=== PATIENT | female | born 1995 | race Asian ===

== ENCOUNTER 2022-01-30 21:23 | Emergency (ER) | payer SELFPAY ==
--- OUTSIDE RECORDS SUMMARY | 2022-01-30 21:28 | XMS REPORT | Continuity of Care Document ---
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 /min Universi ty of [facility] Body temperature 2021-06-18 14:52:00 36.78 Lorelei [facility] Respiratory rate 2021-06-18 14:52:00 14 /min [facility] Body height 2021-06-18 14:52:00 152.4 cm Universi ty of [facility] Body weight 2021-06-18 14:52:00 70.761 kg Universi ty of [facility] BMI 2021-06-18 14:52:00 30.47 kg/m2 Universi ty of [facility] Oxygen saturation in 2021-06-18 14:52:00 99 /min [facility] Arterial blood by [facility] Pulse oximetry [place] Procedures Procedure Date / Time Performed Performing Clinician Sourc e LIPASE 2021-09-11 13:50:00 Jenna Reese [facility] COMP. METABOLIC PANEL 2021-09-11 13:50:00 Jenna Reese [facility] ([id number]) [facility] CBC WITH DIFF 2021-09-11 13:50:00 Jenna Reese [facility] URINALYSIS 2021-09-11 13:39:00 Jenna Reese [facility] CONSENT/REFUSAL FOR 2021-09-11 12:35:16 Doctor Unassigned, No Un [facility] DIAGNOSIS AND Name Medical [facility] TREATMENT CT CHEST PULMONARY 2021-06-23 05:46:31 Mikki Lewis [facility] ANGIOGRAM Medical Branch POCT TEST 2021-06-23 05:08:00 Mikki Lewis [facility] [place] URINALYSIS 2021-06-23 05:07:00 Mikki Lewis [facility] XR CHEST 1 VW 2021-06-23 05:04:00 Mikki Lewis [facility] MAGNESIUM 2021-06-23 04:35:00 Mikki Lewis [facility] TROPONIN I 2021-06-23 04:35:00 Mikki Lewis [facility] COMP. METABOLIC PANEL 2021-06-23 04:35:00 Mikki Lewis [facility] ([id number]) Medical Branch CBC WITH DIFF 2021-06-23 04:35:00 Mikki Lewis [facility] D-DIMER 2021-06-23 04:35:00 Mikki Lewis [facility] CONSENT/REFUSAL FOR 2021-06-23 04:03:19 Doctor Unassigned, No Un [facility] [place] DIAGNOSIS AND Name Medical Branch TREATMENT URINALYSIS 2021-06-18 15:38:00 Jenna Reese [facility] Medical Branch POCT GLUCOSE 2021-06-18 15:11:00 Jenna Reese [facility] (AUTOMATED) Medical Branch CONSENT/REFUSAL FOR 2021-06-18 14:49:43 Doctor Unassigned, No Un [facility] DIAGNOSIS AND Name Medical Branch TREATMENT Plan of Care Planned Activity Planned Date Details Comments Source Future Scheduled Test 2021-06-17 00:00:00 IMM Influenza [facility] Seasonal Jun to November (>/= 19 yrs) [code = IMM Influenza Seasonal Jun to November (>/= 19 yrs)] Future Scheduled Test 2021-06-17 00:00:00 IMM Influenza [facility] Seasonal Jun to November (>/= 19 yrs) [code = IMM Influenza Seasonal Jun to November (>/= 19 yrs)] Future Scheduled Test 2014-10-20 00:00:00 Screening for [facility] malignant neoplasm of cervix (procedure) [code = 816395026] Future Scheduled Test 2014-10-20 00:00:00 Screening for [facility] malignant neoplasm of cervix (procedure) [code = 516080892] Future Scheduled Test 1998-10-20 00:00:00 COVID-19 Vaccine (1) [facility] [code = COVID-19 Vaccine (1)] Future Scheduled Test 1998-10-20 00:00:00 COVID-19 Vaccine (1) [facility] [code = COVID-19 Vaccine (1)] Encounters Start End Encounter Admission Attending Care Care Encounter Source Date/Time Date/Time Type Type Clinicians Facility Department ID 2021-09-11 2021-09-11 [facility] [id number] Univers 06:52:00 11:08:00 JENNA ityassine [facility] 2021-09-11 2021-09-11 [facility] [id number] Univers 06:52:00 11:08:00 Jenna JEAN BAPTISTE [id number] ity [facility] 4.2.7.2.686 [facility] [id number] [address] 2021-06-22 2021-06-23 Emergency [facility] [id number] Univers 23:15:00 01:45:00 Mikki Jean Baptiste [id number] i ty [facility] 4.2.7.2.686 [facility] [id number] [address] 2021-06-22 2021-06-22 Emergency X [facility] ERT [id number] Univers 23:03:00 23:03:00 ity [facility] 2021-06-18 2021-06-18 [facility] [id number] Univers 09:53:00 11:48:00 Jenna Jean Baptiste [id number] ity [facility] 4.2.7.2.686 [facility] [id number] [address] 2021-06-18 2021-06-18 Emergency X [facility] ERT [id number] Univers 09:49:00 09:49:00 ity [facility] 2021-03-05 2021-03-05 Emergency X [facility] ERT [id number] Univers 00:17:00 00:17:00 ity [facility] 2021-01-17 2021-01-17 Outpatient GCCOVIDV GCCOVIDV [id number] GCCOVID 00:00:00 00:00:00 V 2021-01-09 2021-01-09 Emergency X [facility] ERT [id number] Univers 18:34:00 18:34:00 ity [facility] 2020-11-24 2020-11-24 Emergency [facility]RT [id number] Univers 18:00:00 18:00:00 ELISEO [facility] 2020-09-10 2020-09-11 Emergency Brannon Corrales [facility] [id number] 23:20:00 02:29:00 Jacqueline Jean Baptiste [id number] [place] 4.2.7.2.686 [place] [id number] 2020-09-10 2020-09-10 Emergency X Brannon CORRALES [facility] ERT [id number] Univers 23:20:00 [facility]-09[facility]10 2020-09-10 Orders Doctor BRAEDEN [id number] 00:00:00 00:00:00 Only Unassigned, KELSEA [id number] [place] [facility] 4.2.7.2.686 [id number] [id number] 2020-08-13 2020-08-13 [facility] [id number] 10:44:00 12:11:00 Rafael Jean Baptiste [id number] [place] 4.2.7.2.686 [place] [id number] 084 2020-08-13 2020-08-13 Emergency [facility] [id number] Univers 10:44:00 10:44:00 RAFAEL [facility] 2020-08-13 2020-08-13 Orders Doctor BRAEDEN [id number] 00:00:00 00:00:00 Only Unassigned, KELSEA [id number] [place] [facility] 4.2.7.2.686 [id number] [id number] 2020-06-07 2020-06-08 Emergency Facundo, [facility] [id number] 22:31:00 01:04:00 Rafael Jean Baptiste [id number] [place] 4.2.7.2.686 [place] [id number] 084 2020-06-07 2020-06-07 Emergency X [facility] ERT [id number] Univers 22:28:00 22:28:00 ityassine [facility] 2020-04-21 2020-04-21 [facility] [id number] 01:35:00 04:13:00 Jah Jean Baptiste [id number] [place] 4.2.7.2.686 [place] [id number] [id number] 2020-04-21 2020-04-21 [facility] ERT [id number] Univers 01:35:00 01:35:00 JAH morris [facility] 2020-04-15 2020-04-15 Emergency [facility] [id number] 15:35:55 18:20:00 Nancy Jean Baptiste [id number] [place] 4.2.7.2.686 [place] [id number] 2020-04-15 2020-04-15 Emergency X [facility] ERT [id number] Univers 15:35:55 15:35:55 NANCY yassine [facility] 2020-04-14 2020-04-14 Nurse Brady DERAS 1.2.840.114 [id number] 00:00:00 00:00:00 Triage KELSEA Mendoza [id number] [facility] 4.2.7.2.686 [id number] 2020-03-09 2020-03-09 Emergency , [facility] 1.2.767.816 [id number] 19:50:00 20:14:00 Nicolás Jean Baptiste [id number] [place] 4.2.7.2.686 [place] [id number] 084 2020-03-09 2020-03-09 Emergency [facility] [id number] Univers 19:50:00 19:50:00 NICOLÁS morris [facility] 2020-03-09 2020-03-09 Orders Doctor BRAEDEN 1.2.840.114 [id number] 00:00:00 00:00:00 Only UnassignedKELSEA 350.1.13.10 [place] [address] [id number] [id number] 2019-11-11 2019-11-12 Outpatient E VIOLA, [facility] [id number] 03:51:00 16:34:[address] [facility] 2019-11-07 2019-11-07 Emergency E ROMAN SE SE [id number] 01:14:00 06:45:00 [facility] 2019-11-06 2019-11-07 [facility] [id number] 21:44:32 00:32:00 Rafael Jean Baptiste [id number] [place] [address].2.7.2.686 [place] [id number] 2019-11-06 2019-11-07 [facility] [id number] Univers 21:44:32 00:32:00 RAFAEL [facility] 2019-06-07 2019-06-07 Orders Doctor BRAEDEN 1.2.840.114 [id number] 00:00:00 00:00:00 Only UnassignedKELSEA [id number]686 [id number] [id number] Results Test Description Test Time Test Comments Results Result Comments Source HEMOGLOBIN A1c 2021-12-03 07:43:51 Test Item Value Reference Range Interpretation Comme nts HEMOGLOBIN A1c (test code = 11.7 % 4.2-5.6 H [employer] 38720) GUIDELINES FOR HGB A1C: PREDIABETES/INC REASED RISK . . . . . . . 5.7-6.4% DIAGNOSIS OF DIABETES . . . . . . . . . >=6.5% WITH CONF IRMATION OR APPROPRIATE SYMPTOMS N OTE: ASSAY MAY BE AFFECTED BY HEM OGLOBINOPATHIES (SICKLE CELL ANEMIA, S-C DISEASE, OTHERS) OR ARTIFICIALLY LO WERED BY DECREASED RED CELL SURVIV AL (HEMOLYTIC ANEMIAS, BLOOD LOSS, ETC.). CONSIDER ALTERNATE TESTI NG OR LABORATORY CONSULTATION. UNLESS OTHERWISE INDICATED, ALL TESTING PERFORMED [facility] [employer] [address] [place] [address]: SARAHI HENDERSON M.D. [place] NUMBER [id number] [place]. [id number] TSH, THIRD [id number] 04:32:04 Test Item Value Reference Range Interpretation Comments TSH, THIRD GENERATION (test code 4.590 UIU/ML 0.400-4.100 H = 2821) ALBUMIN/CREATININE RATIO, URINE, [id number] 04:19:03 Test Item Value Reference Range Interpretation Comments CREATININE, URINE, 54.4 MG/DL NOT ESTAB RANDOM (test code = 2072) ALBUMIN, URINE, 0.7 MG/DL NOT ESTAB RANDOM (test code = 35475) CALC ALBUMIN/CREAT, 13 MG/G <30 Note: RND (test code = Albumin/Cre atinine 58916) ratio reference interval reflec ts ADA and NKF guidelines. COMPREHENSIVE METABOLIC [id number] 03:37:31 Test Item Value Reference Range Interpretation Comments GLUCOSE (test code = 172 MG/DL 70-99 H 2216) BUN (test code = 12 MG/DL 6-20 2207) CREATININE (test 0.54 MG/DL 0.60-1.30 L code = 2214) eGFR (2020 CKD-EPI) 129 >60 (test code = 70206) ML/MIN/1.73 CALC BUN/CREAT (test 22 RATIO 6-28 code = 2235) SODIUM (test code = 138 MEQ/L 339-916 2164) POTASSIUM (test code 4.9 MEQ/L 3.5-5.4 = 2227) CHLORIDE (test code 102 MEQ/L 95-107 = 2214) CARBON DIOXIDE (test 27 MEQ/L 19-31 code = 2206) CALCIUM (test code = 9.6 MG/DL 8.5-10.5 2208) PROTEIN, TOTAL (test 6.9 G/DL 6.1-8.3 code = 222) ALBUMIN (test code = 4.1 G/DL 3.5-5.2 2200) CALC GLOBULIN (test 2.8 G/DL 1.9-3.7 code = 2240) CALC A/G RATIO (test 1.5 RATIO 1.0-2.6 code = 2234) BILIRUBIN, TOTAL 0.2 MG/DL See_Comment [Automated message] (test code = 2207) The syste m which generated this result transmit isabella reference range : <=1.2. The refe rence range was not u sed to interpret th is result as normal/abnormal . ALKALINE PHOSPHATASE 87 U/L 40-112 (test code = 2203) AST (test code = 21 U/L 9-40 2217) ALT (test code = 27 U/L 5-40 2218) LIPID [id number] 03:37:31 Test Item Value Reference Range Interpretation Comments CHOLESTEROL (test 194 MG/DL <200 code = 2210) TRIGLYCERIDES (test 170 MG/DL <150 H code = 2232) HDL CHOLESTEROL (test 68 MG/DL >39 code = 2220) CALC LDL CHOL (test 99 MG/DL <100 NOTE: C ALCULATED LDL code = 2237) IS BASED ON BERLIN-THORNTON METHOD WHICHINCLUDES ADJUSTABLE TRIGLYCERIDE:VL DL CHOLESTEROL RAT IO.THIS FACTOR VARIES B Y MEASURED TRIGLY CERIDE AND NON-HDLCHOL ESTEROL CONCENTRATIONS WITH INCREASED CALCU LATED LDL SEENIN HIGH ER TRIGLYCERIDE OR LOWER NON-HDL SPECIME NS. FOR MOREINFORMATION , SEE CLIENT ANNOUNCE MENT AT [email or web address] RISK RATIO LDL/HDL 1.46 RATIO <3.22 (test code = 223) SARS-CoV-2 (COVID-19), RT-PCR/[id number] 07:15:02 Test Item Value Reference Interpretation Comments Range SARS-CoV-2 POSITIVE SEE NOTE A SARS-CoV-2 RNA INTERPRETATION DETECTEDPosit augusta results (test code = 17132) are cy cative of the presence of ISAAC S-CoV-2 RNA;clinical co rrelation with patient hi story and other diagnosticinfor mation is necessary to de termine patient infecti on status.Positive results do not rule out bacterial infection or co-infectionwit h other viruses. Positi ve and negative predic tive values oftestin g are highly dependen t on prevalence. SOURCE (test code = NOT SPECIFIED Note: [place] [address]) Aggie Shirlene [place] l-Time RT-PCR. The exp ected result or refer ence range is NEGATIVE (No t Detected). For more information reg arding COVID-19 testin g to include clinicalinforma tion, methodology det ail, intended use, F DA authorization andrecommended fact sheets for ed ents or healthcare prov iders, see NewTest Announc ement: SARS-CoV-2 (COV ID-19) by NAAT at URL bel ow (note,fact shee ts are provided by met hod given in report:https:// www.[employer]/clinician s/client-c ommunications/ Alternatively, see downloadable PD F fact sheet at:https://www. [employer] m/TCVCH-36-QB-P CR UNLESS OTHERWIS E INDICATED, ALL TESTING PERFORMED [facility] PATHOLOGY [facility] [employer] [facility]. [address] [place] [address] 4 LABORATORY DIRE CTOR: SARAHI VILLA M.D. CLIA NUMBER [id number] [place] [id number] SARS-CoV-2 (COVID-19), RT-PCR/[id number] 14:34:59 Test Item Value Reference Interpretation Comments Range SARS-CoV-2 NEGATIVE SEE NOTE SARS-CoV-2 RNA NOT INTERPRETATION DETECTEDNegat augusta (test code = 76265) results do not preclude SARS-CoV-2 infe ction and should notb e used as the sole bas is for patient managem ent decisions. Negativeresults must be combined with c linical observations, p atient history,and epidemiological information. Op timum specimen types and timingfor peak viral levels during infections caus ed by SARS-CoV-2 have notbeen determined. Col lection of multiple spe cimens or types ofspec imens may be necessar y to detect virus. I mproper specimencollect ion and handling, seque nce variability und er primers/probes, or organism presen t below the limit of de tection may lead to falsenegative r esults. Positive and ne gative predictive valu es oftesting are h ighly dependent on prevalence. Fal se negative testre sults are more likely when prevalence is h igh. SOURCE (test code = NOT SPECIFIED Note: [place] [address]) Aggie Shirlene [place] l-Time RT-PCR. The exp ected result or ref erence range is NEGATI VE (Not Detected). For more information reg beryl COVID-19 testin g to include clinicalinforma tion, methodology det ail, intended use, F DA authorization andrecommended fact sheets for ed ents or healthcare prov iders, see [facility] HospitalTest Announcement: SARS-CoV-2 (COV ID-19) by NAAT at URL below (note,fact shee ts are provided by met hod given in report:https:// www.[employer]com/clinici ans/clie nt-communicatio ns/ Alternatively, see downloadable PD F fact sheet at:https://www. [employer]/COVID-19-RT -PCR UNLESS OTHERW ISE INDICATED, ALL TESTING PERFORMED [facility] PATHOLOGY [facility], [facility]. [address] [place] [address] 4 LABORATORY DI EWA: Dony PEREIRA [id number] CAP ACCREDITATION N O. [id number] COMP. METABOLIC PANEL (93662)2021-09-11 14:15:24 Test Item Value Reference Range Interpretation Comments NA (test code = 136 mmol/L 135-145 1406799396) K (test code = 3.8 mmol/L 3.5-5.0 4922327575) CL (test code = 100 mmol/L 98-108 1737546204) CO2 TOTAL (test code = 27 mmol/L 23-31 2560753687) AGAP (test code = 2-16 4081918574) BUN (test code = 10 mg/dL 7-23 3354835471) GLUCOSE (test code = 84 mg/dL 70-110 0163063272) CREATININE (test code = 0.45 mg/dL 0.50-1.04 L 7415994977) TOTAL BILI (test code = 0.6 mg/dL 0.1-1.2 1443383060) CALCIUM (test code = 9.1 mg/dL 8.6-10.6 5504687336) T PROTEIN (test code = 8.0 g/dL 6.3-8.2 0104785456) ALBUMIN (test code = 4.8 g/dL 3.5-5.0 4782944378) ALK PHOS (test code = 85 U/L 34-122 2370952216) ALTv (test code = 23 U/L 5-35 1742-6) AST(SGOT) (test code = 26 U/L 13-40 7671022300) eGFR (test code = mL/min/1.73m2 1537414381) JONNIE (test code = JONNIE) Association of Glomerular Filtration Rate (GFR) and Staging of Kidney Disease* + --+ --+ ------+| GFR (mL/min/1.73 m2) ?| With Kidney Damage ?| ?Without Kidney Damage+ --------+ --------+ +| ?>90 ?| ?Stage one ?| ? Normal ?+ ---+ ---+ -------+| ?60-89 ?| ?Stage two ?| ? Decreased GFR ? + --+ --+ ------+| ?30-59 ?| ?Stage three ?| ? Stage three ? + --+ --+ ------+| ?15-29 ?| ?Stage four ? | ? Stage four ?+ ---+ ---+ -------+| ?<15 (or dialysis) ? ?| ?Stage five ? | ? Stage five ?+ ---+ ---+ -------+ *Each stage assumes the associated GFR level has been in effect for at least three months. ?Stages 1 to 5, with or without kidney disease, indicate chronic kidney disease. Notes: Determination of stages one and two (with eGFR >59mL/min/1.73 m2) requires estimation of kidney damage for at least three months as defined by structural or functional abnormalities of the kidney, manifested by either:Pathological abnormalities or Markers of kidney damage (including abnormalities in the composition of the blood or urine or abnormalities in imaging tests). Lab Interpretation Abnormal (test code = 08182-5) [facility] 14:15[facility]24 Test Item Value Reference Range Interpretation Comments LIPASE (test code = 3816074748) 62 U/L 0-220 Lab Interpretation (test code = Normal 54514-9) [facility] HospitalCB WITH [id number] 14:08:42 Test Item Value Reference Range Interpretation Comments WBC (test code = See_Comment [Automated 6690-2) message] The sy stem which generated this result transmitted reference range : 4.30 - 11.10 10*3/?L. The reference range was not used to interpret this result as normal/abnormal . RBC (test code = See_Comment [Automated 789-8) message] The sy stem which generated this result transmitted reference range : 3.93 - 5.25 10*6/?L. The reference range was not used to interpret this result as normal/abnormal . HGB (test code = 13.9 g/dL 11.6-15.0 718-7) HCT (test code = 41.0 % 35.7-45.2 4544-3) MCV (test code = 83.2 fL 80.6-95.5 787-2) MCH (test code = 28.2 pg 25.9-32.8 785-6) MCHC (test code = 33.9 g/dL 31.6-35.1 786-4) RDW-SD (test code = 36.4 fL 39.0-49.9 L 17303-3) RDW-CV (test code = 12.0 % 12.0-15.5 788-0) PLT (test code = See_Comment [Automated 777-3) message] The sy stem which generated this result transmitted reference range : 166 - 358 10*3/ ?L. The reference r raheel was not used to interpret this result as normal/abnormal . MPV (test code = 9.6 fL 9.5-12.9 46007-0) NRBC/100 WBC (test See_Comment [Automat ed code = 5636556889) message] The system which generated this result transmitted reference range : 0.0 - 10.0 /100 WBCs. The refer ence range was not u sed to interpret th is result as normal/abnormal . NRBC x10^3 (test code <0.01 See_Comment [Auto mated = 2952049307) message] The s ystem which generated this result transmitted reference range : 10*3/?L. The reference range was not used to interpret this result as normal/abnormal . GRAN MAT (NEUT) % 56.6 % (test code = 770-8) IMM GRAN % (test code 0.30 % = 4623641336) LYMPH % (test code = 34.4 % 736-9) MONO % (test code = 6.8 % 5905-5) EOS % (test code = 1.4 % 713-8) BASO % (test code = 0.5 % 706-2) GRAN MAT x10^3(ANC) 3.56 10*3/uL 1.88-7.09 (test code = 3003140795) IMM GRAN x10^3 (test <0.03 0.00-0.06 code = 5354030290) LYMPH x10^3 (test code 2.17 10*3/uL 1.32-3.29 = 731-0) MONO x10^3 (test code 0.43 10*3/uL 0.33-0.92 = 742-7) EOS x10^3 (test code = 0.09 10*3/uL 0.03-0.39 711-2) BASO x10^3 (test code 0.03 10*3/uL 0.01-0.07 = 704-7) Lab Interpretation Abnormal (test code = 17412-7) [facility] [id number] 05:24:21 Test Item Value Reference Interpretation Comments Range TROPONIN I (test 0.029 ng/mL See_Comment [Automated code = 6509506911) message] The system which generated this result transmitted reference range : <=0.034. The reference range was not used to interpret this result as normal/abnormal . JONNIE (test code = Reference (Normal) JONNIE) Range (defined by the 99th percentile reference limit): <= 0.034 ng/mL Note: Cardiac troponin begins to rise 3-4 hours after the onset of ischemia. Repeat in 4-6 hours if the sample was drawn within 3-4 hours of the onset of the symptom and found normal. Diagnosis of myocardial injury is made with acute changes in cTn concentrations with at least one serial sample above the 99th percentile upper reference limit (URL), taken together with the patient's clinical presentation. Biotin has been reported to cause a negative bias, interpret results relative to patient's use of biotin. Lab Interpretation Normal (test code = 34377-1) [facility]2021[facility]-07 05:12:57 Test Item Value Reference Range Interpretation Comments MAGNESIUM (test code = 5208827455) 1.9 mg/dL 1.7-2.4 Lab Interpretation (test code = Normal 07819-5) [facility] HospitalCOMP. METABOLIC PANEL (97781)2021-06-23 05:12:42 Test Item Value Reference Range Interpretation Comments NA (test code = 133 mmol/L 135-145 L [id number]) K (test code = 4.4 mmol/L 3.5-5.0 7909621707) CL (test code = 100 mmol/L 98-108 4964232602) CO2 TOTAL (test code = 23 mmol/L 23-31 5999571279) AGAP (test code = 2-16 4432515478) BUN (test code = 7 mg/dL 7-23 5684580247) GLUCOSE (test code = 328 mg/dL 70-110 H 7480415681) CREATININE (test code = 0.39 mg/dL 0.50-1.04 L 9887832590) TOTAL BILI (test code = 1.0 mg/dL 0.1-1.0 5995491144) CALCIUM (test code = 9.6 mg/dL 8.6-10.6 8513623409) T PROTEIN (test code = 7.7 g/dL 6.3-8.2 9800726644) ALBUMIN (test code = 4.3 g/dL 3.5-5.0 1374958213) ALK PHOS (test code = 105 U/L 34-122 3057346266) ALTv (test code = 37 U/L 5-35 H 1742-6) AST(SGOT) (test code = 43 U/L 13-40 H 5346681450) eGFR (test code = mL/min/1.73m2 6063051461) JONNIE (test code = JONNIE) Association of Glomerular Filtration Rate (GFR) and Staging of Kidney Disease* + --+ --+ ------+| GFR (mL/min/1.73 m2) ?| With Kidney Damage ?| ?Without Kidney Damage+ --------+ --------+ +| ?>90 ?| ?Stage one ?| ? Normal ?+ ---+ ---+ -------+| ?60-89 ?| ?Stage two ?| ? Decreased GFR ? + --+ --+ ------+| ?30-59 ?| ?Stage three ?| ? Stage three ? + --+ --+ ------+| ?15-29 ?| ?Stage four ? | ? Stage four ?+ ---+ ---+ -------+| ?<15 (or dialysis) ? ?| ?Stage five ? | ? Stage five ?+ ---+ ---+ -------+ *Each stage assumes the associated GFR level has been in effect for at least three months. ?Stages 1 to 5, with or without kidney disease, indicate chronic kidney disease. Notes: Determination of stages one and two (with eGFR >59mL/min/1.73 m2) requires estimation of kidney damage for at least three months as defined by structural or functional abnormalities of the kidney, manifested by either:Pathological abnormalities or Markers of kidney damage (including abnormalities in the composition of the blood or urine or abnormalities in imaging tests). Lab Interpretation Abnormal (test code = 89167-3) [id number]00 Test Item Value Reference Range Interpretation Comments POCT PREG (test code = 1605) negative On board controls acceptable with present C Line (test code = 3574) POCT PREG LOT # (test code = 3575) [id number] POCT PREG TEST DATE (test 2022-09-16 code = 3576) Lab Interpretation (test code = Normal 19785-4) [id number] 05:03:48 Test Item Value Reference Interpretation Comments Range D-DIMER (test code = See_Comment H [Autom ated 4119287219) message] The system which generated this result transmitted reference range : <0.41 ?g/mL (FEU). The reference range was not used to interpret this result as normal/abnormal . JONNIE (test code = This test may be JONNIE) used in conjunction with a clinical pretest probability (PTP) assessment model to exclude venous thromboembolism (VTE) in patients suspected of deep venous thrombosis (DVT) and pulmonary embolism (PE) A D-Dimer value less than 0.50 ?g/ml (FEU) has a negative predicative value of 96 to 100% (95% CI)and 97 to 100% (95% CI) as an aid in the diagnosis of deep vein thrombosis (DVT) and pulmonary embolism when there is low or moderate pretest probability of PE or DVT. D-Dimer values are expressed in initial fibrinogen equivalent units (FEU)" The assay results should be used with other information, including the clinical context, in forming a diagnosis. Lab Interpretation Abnormal (test code = 32808-4) [facility] WITH [id number] 04:54:52 Test Item Value Reference Range Interpretation Comments WBC (test code = See_Comment [Automated 2390-2) message] The sy stem which generated this result transmitted reference range : 4.30 - 11.10 10*3/?L. The reference range was not used to interpret this result as normal/abnormal . RBC (test code = See_Comment [Automated 789-8) message] The sy stem which generated this result transmitted reference range : 3.93 - 5.25 10*6/?L. The reference range was not used to interpret this result as normal/abnormal . HGB (test code = 14.4 g/dL 11.6-15.0 718-7) HCT (test code = 41.3 % 35.7-45.2 4544-3) MCV (test code = 81.9 fL 80.6-95.5 787-2) MCH (test code = 28.6 pg 25.9-32.8 785-6) MCHC (test code = 34.9 g/dL 31.6-35.1 786-4) RDW-SD (test code = 36.0 fL 39.0-49.9 L 54836-0) RDW-CV (test code = 12.2 % 12.0-15.5 788-0) PLT (test code = See_Comment [Automated 777-3) message] The sy stem which generated this result transmitted reference range : 166 - 358 10*3/ ?L. The reference r raheel was not used to interpret this result as normal/abnormal . MPV (test code = 10.6 fL 9.5-12.9 31461-6) NRBC/100 WBC (test See_Comment [Automat ed code = 2503936208) message] The system which generated this result transmitted reference range : 0.0 - 10.0 /100 WBCs. The refer ence range was not u sed to interpret th is result as normal/abnormal . NRBC x10^3 (test code <0.01 See_Comment [Auto mated = 3532878404) message] The s ystem which generated this result transmitted reference range : 10*3/?L. The reference range was not used to interpret this result as normal/abnormal . GRAN MAT (NEUT) % 58.7 % (test code = 770-8) IMM GRAN % (test code 0.30 % = 6058862136) LYMPH % (test code = 34.8 % 736-9) MONO % (test code = 5.3 % 5905-5) EOS % (test code = 0.6 % 713-8) BASO % (test code = 0.3 % 706-2) GRAN MAT x10^3(ANC) 5.59 10*3/uL 1.88-7.09 (test code = 4555070602) IMM GRAN x10^3 (test 0.03 10*3/uL 0.00-0.06 code = 4189890606) LYMPH x10^3 (test code 3.31 10*3/uL 1.32-3.29 H = 731-0) MONO x10^3 (test code 0.50 10*3/uL 0.33-0.92 = 742-7) EOS x10^3 (test code = 0.06 10*3/uL 0.03-0.39 711-2) BASO x10^3 (test code 0.03 10*3/uL 0.01-0.07 = 704-7) Lab Interpretation Abnormal (test code = 81603-0) [facility]2021-06-18 15:16:22 Test Item Value Reference Range Interpretation Comments POCT GLU (test code = 376 mg/dL 70-110 H Notifi ed Provider [id number]) Lab Interpretation (test Abnormal code = 67197-2) [facility] [id number] 17:46:00 Test Item Value Reference Range Interpretation Comments SODIUM (test code = NA) 136 mEq/L 134-147 N POTASSIUM (test code = 3.9 mEq/L 3.4-5.0 N K) CHLORIDE (test code = 103 mEq/L 100-108 N CL) CARBON DIOXIDE (test 28 mEq/L 21-33 N code = CO2) ANION GAP (test code = 9 0-20 N GAP) GLUCOSE (test code = 407 mg/dL 70-110 H GLU) BLOOD UREA NITROGEN 8 mg/dL 7-18 N (test code = BUN) GLOMERULAR FILTRATION 87.4 110-120 L Units of measure = RATE (test code = GFR) ml/mi n/1.73 m2 CREATININE (test code = 0.8 mg/dL 0.6-1.3 N CREAT) TOTAL PROTEIN (test 7.8 g/dL 6.4-8.2 N code = PROT) ALBUMIN (test code = 3.80 g/dL 3.4-5.0 N ALB) CALCIUM (test code = 9.2 mg/dL 8.0-10.5 N CA) BILIRUBIN TOTAL (test 0.4 MG/DL <1.5 N code = BILT) SGOT/AST (test code = 94 IUnit/L 15-37 H AST) SGPT/ALT (test code = 214 IUnit/L 15-65 H ALT) ALKALINE PHOSPHATASE 120 IUnit/L 20-125 N TOTAL (test code = ALKP) FAX:[phone]:[phone] METABOLIC [id number] 17:40:00 Test Item Value Reference Range Interpretation Comments SODIUM (test code = NA) 136 mEq/L 134-147 N POTASSIUM (test code = K) 3.9 mEq/L 3.4-5.0 N CHLORIDE (test code = CL) 103 mEq/L 100-108 N CARBON DIOXIDE (test code = CO2) 28 mEq/L 21-33 N ANION GAP (test code = GAP) 9 0-20 N GLUCOSE (test code = GLU) 407 mg/dL 70-110 H BLOOD UREA NITROGEN (test code = 8 mg/dL 7-18 N BUN) GLOMERULAR FILTRATION RATE (test 110-120 code = GFR) CREATININE (test code = CREAT) mg/dL 0.6-1.3 TOTAL PROTEIN (test code = PROT) g/dL 6.4-8.2 ALBUMIN (test code = ALB) g/dL 3.4-5.0 CALCIUM (test code = CA) 9.2 mg/dL 8.0-10.5 N BILIRUBIN TOTAL (test code = BILT) MG/DL <1.5 SGOT/AST (test code = AST) IUnit/L 15-37 SGPT/ALT (test code = ALT) IUnit/L 15-65 ALKALINE PHOSPHATASE TOTAL (test IUnit/L 20-125 code = ALKP) FAX:[phone]:[phone], [id number] 17:45:00 Test Item Value Reference Range Interpretation Comments RPR (test code = RPR) Non-Reactive Non-Reactive N Thyroid Stimulating Hormone (TSH)2017-11-23 10:02:00 Test Item Value Reference Range Interpretation Comments TSH (test code = TSH) 3.89 mIU/mL 0.270-4.200 N BHCG, Serum, [id number] 10:02:00 Test Item Value Reference Range Interpretation Comments B hCG, Quant (test <1 mIU/mL Weeks of Gestation code = BHCGQT) Ranges (mIU/m L)3 weeks 5. 40 - 72.04 weeks 10.2 - 7085 w eeks 217 - 28827 weeks 152 - 601276 weeks 4059 - 153 7678 weeks 76577 - 7065931 weeks 591 09 - 32263604 weeks 44400 - 1704 0912 weeks 73204 - 72158756 week s 91373 - 93 89544 weeks 35297 - 6610890 weeks 8904 - 5533 217 weeks 82 40 - 4223607 weeks 9649 - 12389 Lipid [id number] 09:57:00 Test Item Value Reference Range Interpretation Comments Cholesterol (test 195 mg/dL 0-200 N code = CHOL) Triglycerides (test 382 mg/dL 9-200 H code = TRIG) HDL (test code = 49 mg/dL 50-60 L HDL) Chol/HDL (test code 4.0 Ratio 0.0-4.4 N = CHOLPHDL) LDL, Calculated 70 0-130 N (NOTE)RISK O F HEART (test code = LDLC) DISEASEPu blished by [place] Heart AssociationAnal yte Optim al Boderline Increased RiskC HOL <200 200-239 >240TRI G <150 150-199 >200HDL Male: >60 <40HDL Female: >60 <50 LDL < 100 130-15 9 >160 LDL NEAR OPTIMAL IS 100- 129 VLDL (test code = 76 mg/dL 5-40 H VLDL) LDL/HDL (test code = 1 LDLPHDL) Valproic Acid (Depakote),[id number] 16:26:00 Test Item Value Reference Range Interpretation Comments Valproic Acid (test code = VALP) 67.0 ug/mL 50.0-100.0 N Comprehensive Metabolic [id number] 16:26:00 Test Item Value Reference Range Interpretation Comments Sodium (test code = 138 mmol/L 135-145 N NA) Potassium (test 4.4 mmol/L 3.5-5.1 N code = K) Chloride (test code 99 mmol/L 98-105 N = CL) Carbon Dioxide 29 mmol/L 22-29 N (test code = CO2) Glucose (test code 157 mg/dL 70-115 H = GLU) Blood Urea Nitrogen 12 mg/dL 6-20 N (test code = BUN) Creatinine (test 0.7 mg/dL 0.5-0.9 N code = CREAT) Calcium (test code 9.3 mg/dL 8.3-10.5 N = CA) Prot Total (test 7.7 g/dL 6.4-8.3 N code = TP) Albumin (test code 4.4 g/dL 3.5-5.2 N = ALB) A/G Ratio (test 1.3 Ratio code = AGRATIO) Globulin (test code 3.3 2.9-3.1 H = GLOB) Bili Total (test 0.3 mg/dL 0.1-0.9 N code = TBIL) Alk Phos (test code 84 U/L 35-104 N = APHOS) AST (test code = 25 U/L 1-32 N AST) ALT (test code = 22 U/L 1-33 N ALT) BUN/Creatinine 17.1 Ratio (test code = BCRATIO) Anion Gap (test 10 mmol/L 7-16 N code = AGAP) Estimated GFR (test >60 eGFR (es timated code = GFR) mL/min/1.73m2 Glomerular Kervin tration Rate) is an est imated value,calculate d from the patient's s verena creatinine usin g the MDRD equation.I t is NOT the patient 's actual GFR. The eGFR provides a more clinicallyusefu l measure of kidn ey disease than se rum creatinine alone.This calculation vish es sex and race into account, if the informationis provided. If th e race is not provided , and the patient isAfrican-Ameri can, multiply by 1.2 12. If sex is not prov ided, and thepatient is female, multipl y by 0.742. Results for patients <18 ye ars ofage have not been validated by th e MDRD study and jacobul d be interpretedwith caution.eGFR Re sult Interpretation: eGFR > or = 60 is in t he Normal RangeeGF R < 60 may mean kidney diseaseeGFR < 1 5 may mean kidney failureRange s recommended by the National Kidney Foundation,http ://nkd ep.nih.gov Urinalysis [id number] 16:11:00 Test Item Value Reference Range Interpretation Comments Color (test code = COLOR) Yellow Yellow,Straw,Pl N yellow Clarity (test code = Clear Clear N CLAR) Specific [place] (test 1.020 1.001-1.035 N code = SPGR) pH (test code = PH) 5.0 5.0-9.0 N Ketone (test code = KET) Negative mg/dL Negative N Glucose (test code = Negative mg/dL Negative N GLUCUR) Protein (test code = 25 mg/dL Negative A PROT) Bilirubin (test code = Negative mg/dL Negative N BILI) Occult Blood (test code = Negative Negative N UDOB) Urobilinogen (test code = 0.2 mg/dL 0.2-1.0 N UROB) Nitrite (test code = NIT) Negative Negative N Leuk Esterase (test code Small Negative A = LEUK) Micros Exam (test code = Indicated MEXAM) Epithelial Cells (test 50+ /LPF 0-30 A code = EPI) WBC, Urine (test code = 2-5 /HPF 0-5 A UWBC) RBC, Urine (test code = None Seen /HPF 0-5 A URBC) Bacteria (test code = Few /HPF BACT) BHCG, Urine, [id number] 16:10:00 Test Item Value Reference Range Interpretation Comments Preg Qual [Ur] (test code = HUHCG) Negative Negative N [id number] 16:07:00 Test Item Value Reference Range Interpretation Comments Amphetamine (test Negative Negative N For diagno stic code = AMPH) purposes only, positive result s should always b e assessedin conjunctionwith the patient's medic al history,clinica l examination and otherfindings.T o fulfill legal requirements, a more specific altern ate chemical method must be used inorder to obtain a Confirmed lise lytical result. GC/MS i s the preferred confi rmatory method. Barbiturates (test Negative Negative N code = ALLAN) Benzodiazepine (test Negative Negative N code = VISHAL) Cocaine (test code = Negative Negative N COCA) Methadone (test code Negative Negative N = MTHD) Opiates (test code = Negative Negative N OPIA) PCP (test code = PCP) Negative Negative N Propoxyphene (test Negative Negative N code = PROPOX) THC (test code = THC) Negative Negative N Alcohol, Urine (test <0.01 g/dL 0.00-0.01 N code = ETOHU) CBC with [id number] 15:41:00 Test Item Value Reference Range Interpretation Comments WBC (test code = WBC) 6.0 K/cumm 4.4-10.5 N RBC (test code = RBC) 4.63 M/cumm 3.75-5.20 N Hemoglobin (test code = HGB) 12.7 gm/dL 12.2-14.8 N Hematocrit (test code = HCT) 39.0 % 36.5-44.4 N MCV (test code = MCV) 84.3 fL 80-100 N MCH (test code = MCH) 27.4 pg 27.0-32.5 N MCHC (test code = MCHC) 32.5 g/dL 32.0-37.5 N RDW (test code = RDW) 14.3 % 11.5-14.5 N Platelet Count (test code = 160 K/cumm 140-440 N PLTCT) MPV (test code = MPV) 6.9 fL Diff Method (test code = DIFFM) Auto Neutrophil (test code = NEUT) 54.9 % 36-70 N Lymphocyte (test code = LYMPH) 33.9 % 12-44 N Monocyte (test code = MONO) 6.6 % 0-11 N Eosinophil (test code = EOS) 3.9 % 0-7 N Basophil (test code = BASO) 0.7 % 0-2 N Neutro Abs (test code = ANEUT) 3.3 K/cumm 1.6-7.4 N Lymph Abs (test code = ALYMPH) 2.0 K/cumm 0.5-4.6 N Walsh Abs (test code = AMONO) 0.4 K/cumm 0.0-1.2 N Eos Abs (test code = AEOS) 0.24 K/cumm 0.00-0.74 N Baso Abs (test code = ABASO) 0.0 K/cumm 0.00-0.21 N
--- NOTE | 2022-01-30 21:45 | ER ---
Nurse's Notes [facility] Name: Caitie Kendall Age: 26 yrs Sex: Female : 1995 Arrival Date: 01/30/2022 Time: 21:28 Bed Waiting Private MD: Diagnosis: ED Course: 01/30 21:28 Patient arrived in ED. sav Administered Medications: No medications were administered Outcome: 21:44 Patient left the ED. ld1 Signatures: Zaynab Ledezma RN RN ld1 Cheryl Padilla
== END 2022-01-30 21:44 | disposition left against medical advice (07) ==
LOC: ER 21:23
DX: Z02.89 Encounter for other administrative examinations (principal)